=== PATIENT | female | born 1995 | race African-American/Black ===

== ENCOUNTER 2017-01-03 13:32 | Emergency (ER) | payer OTHER ==
[~2017-01-03] VITALS: Ht 147.3 cm; Wt 49.9 kg
[2017-01-03 13:34] VITALS: BP 108/55; PULSE 68; RESP 20; TEMP 98.1; O2SAT 100
--- NOTE | 2017-01-03 13:40 | NUR ---
PT. TO THE ER BROUGHT IN BY HER MOTHER AAOx4 C/O PAIN IN HER CHEST 08/12 WITH INSPIRATION, STATES THE ONSET IS NEW, STATES NO SOB, STATES NO N/V STATES NO HEADACHE, MOTHER AT BEDSIDE, CAP REFIL < 3 SECS, APPEARS TO BE UNDER NO RESPITORY DISTRESS, JEN, PULSES WNL, ON EDUCATION AND TRAINING COORDINATOR
--- NOTE | 2017-01-03 13:43 | NUR ---
Pt placed to ER bed 1 and to gown. Pt report given to KAMRON Recinos.
--- NOTE | 2017-01-03 13:44 | NUR ---
Dr. Cedillo at bedside to assess pt.
--- NOTE | 2017-01-03 13:49 | NUR ---
EKG at bedside
[2017-01-03 14:10] LABS: BILIRUBIN,URINE 1+ (NEGATIVE); BLOOD, URINE NEGATIVE (NEGATIVE); CLARITY/URINE SL HAZY (CLEAR); COLOR,URINE AMBER (YELLOW); GLUCOSE,URINE NEGATIVE (NEGATIVE); KETONES,URINE TRACE (NEGATIVE); LEUKOCYTE ESTERASE ,URINE NEGATIVE (NEGATIVE); NITRITE, URINE NEGATIVE (NEGATIVE); PROTEIN URINE NEGATIVE (NEGATIVE); UROBILINOGEN,URINE 0.2 (0.2-1.0)
[2017-01-03] MEDS ORDERED: ALBUTEROL SULFATE 0.083% 2.5 MG/3 ML VIAL.NEB INH ONE (14:15)
[2017-01-03] MEDS ORDERED: KETOROLAC TROMETHAMINE 60 MG/2 ML VIAL IM ONE (14:15)
[2017-01-03] MEDS ORDERED: DEXAMETHASONE SOD PHOSPHATE 10 MG/ML VIAL IM ONE (14:15)
[2017-01-03 14:19] LABS: CALCIUM 8.7 mg/dL (8.4-11.0); CREATININE 0.66 mg/dL (0.55-1.30); POTASSIUM 3.7 mmol/L (3.5-5.1)
[2017-01-03 14:21] LABS: INR 1.1 (0.8-1.2); PROTHROMBIN TIME 11.6 SECS (9.5-12.5)
--- NOTE | 2017-01-03 14:21 | NUR ---
X RAY AT BEDSIDE
[2017-01-03 14:22] LABS: BACTERIA,URINE FEW /HPF (None Seen); MUCUS,URINE 1+ /LPF (None Seen)
[2017-01-03 14:23] LABS: BASOPHILS # (AUTO) 0.1 K/uL (0.0-0.2); BASOPHILS % (AUTO) 1.5 % (0.0-2.0); EOSINOPHILS # (AUTO) 0.1 K/uL (0.0-0.4); EOSINOPHILS % (AUTO) 2.6 % (0.0-4.0); HEMATOCRIT 36.8 % (36-48); HEMOGLOBIN 12.6 g/dL (12.0-16.0); LYMPHOCYTES # (AUTO) 2.1 K/uL (1.0-5.5); LYMPHOCYTES % (AUTO) 52.8 % (20.5-51.5); MEAN CORPUSCULAR HEMOGLOBIN 28 pg (27-31); MEAN CORPUSCULAR HGB CONC 34 % (32-36); MEAN CORPUSCULAR VOLUME 83 fL (79.0-98.0); MONOCYTES # (AUTO) 0.4 K/uL (0.0-1.0); MONOCYTES % (AUTO) 11.1 % (1.7-9.3); NEUTROPHILS # (AUTO) 1.3 K/uL (1.8-7.7); RED BLOOD CELL COUNT(AUTO) 4.46 MIL/uL (4.2-6.2); RED CELL DISTRIBUTION WIDTH 13.4 % (9.0-15.0)
[2017-01-03 14:24] LABS: ALBUMIN 5.5 g/dL (3.4-4.8); TOTAL PROTEIN, SERUM 8.2 g/dL (6.4-8.3)
[2017-01-03 14:36] LABS: PLATELET COUNT (AUTO) 126 K/uL (130-430)
[2017-01-03 15:03] VITALS: BP 112/64; PULSE 71; RESP 17; TEMP 98.2; O2SAT 99
--- NOTE | 2017-01-03 15:03 | NUR ---
Patient given written and verbal discharge instructions and verbalizes understanding. ER MD Cedillo discussed with patient the results and treatment provided. Patient in stable condition. ID arm band removed. Rx of azithromycin given. Patient educated on pain management and to follow up with PMD. Pain Scale 0/10. Opportunity for questions provided and answered.
== END 2017-01-03 15:03 | disposition home or self-care (01) ==
LOC: SED 13:32
DX: J20.9 Acute bronchitis, unspecified (principal); D50.9 Iron deficiency anemia, unspecified
CPT/HCPCS: 36415; 71010; 80053; 81000; 84484; 85025; 85610; 87086; 93005; 94640; 96372; 99285; J1100; J1885

== ENCOUNTER 2017-01-10 20:52 | Emergency (ER) | payer OTHER ==
[~2017-01-10] VITALS: Ht 147.3 cm; Wt 49.9 kg
[2017-01-10 20:55] VITALS: BP 124/61; PULSE 83; RESP 14; TEMP 98.1; O2SAT 100
--- NOTE | 2017-01-10 20:55 | NUR ---
Placed in room 8 . Placed on mold holder, blood pressure machine and pulse oximeter. To gown for exam. Side rails up. Report given to Grisel LUNDY.
--- NOTE | 2017-01-10 21:00 | NUR ---
DR. CARDOZA AT BEDSIDE EXAMINING THE PT.
--- NOTE | 2017-01-10 21:05 | NUR ---
PT. TO THE ER AAOX4 STATES THAT SHE HAS CHEST PAINS NON RADIATING OFF AND ON, CALLED HER PRIMARY PCP SAID TO GO TO THE ER, STATES THAT SHE WAS HERE ON FRIDAY FOR BRONCHITIS, LUNGS ARE CLEAR TO AUSCULTATION BILATERALLY, PAIN 5/10
[2017-01-10 21:15] VITALS: BP 124/61; PULSE 69; RESP 15; TEMP 97.9; O2SAT 100
[2017-01-10] MEDS ORDERED: IBUPROFEN 600 MG TABLET PO ONE (21:15)
--- NOTE | 2017-01-10 21:30 | NUR ---
Patient given written and verbal discharge instructions and verbalizes understanding. ER MD DR. CARDOZA discussed with patient the results and treatment provided. Patient in stable condition. ID arm band removed. Rx of ALBUTEROL IBUPROFEN given. Patient educated on pain management and to follow up with PMD. Pain Scale0/10 Opportunity for questions provided and answered.
== END 2017-01-10 21:30 | disposition home or self-care (01) ==
LOC: SED 20:52
DX: R07.89 Other chest pain (principal); J45.909 Unspecified asthma, uncomplicated
CPT/HCPCS: 99283